=== PATIENT | female | born 1960 | race Caucasian/White ===

== ENCOUNTER 2018-02-23 07:47 | Day surgery (SDC) | payer MEDICAID ==
[~2018-02-23 07:47] MED LIST: Bupivacaine 0.5% 50 ML MDV ONE; Lidocaine 1% with EPINEPHrine 1:100,000 50 ML MDV ONE
[2018-02-23] MEDS ORDERED: Dextrose 5%-Lactated Ringers 1,000 ML IV SCH (08:30)
[2018-02-23] MEDS ORDERED: ceFAZolin 2 GM in Premix Bag 1 BAG IV ONE (09:00)
[2018-02-23] MEDS ORDERED: fentaNYL 250 MCG/5 ML SDV ONE ×2 (09:42→10:48)
[2018-02-23] MEDS ORDERED: Neostigmine Methylsulfate 1 MG/ML 5 ML Syringe ONE (09:43)
[2018-02-23] MEDS ORDERED: Succinylcholine 200 MG/10 ML MDV ONE (09:43)
[2018-02-23] MEDS ORDERED: Glycopyrrolate 0.2 MG/ML 5 ML MDV ONE (09:43)
[2018-02-23] MEDS ORDERED: Ondansetron 4 MG/2 ML SDV ONE (09:43)
[2018-02-23] MEDS ORDERED: Dexamethasone 4 MG/ML SDV ONE (09:43)
[2018-02-23] MEDS ORDERED: Propofol 200 MG/20 ML SDV ONE (09:43)
[2018-02-23] MEDS ORDERED: Rocuronium 50 MG/5 ML Vial ONE (09:43)
[2018-02-23] MEDS ORDERED: Lactated Ringers 1,000 ML ONE (11:19)
[2018-02-23] MEDS ORDERED: hydrOXYzine HCl 100 MG/2 ML SDV IM ONE (12:27)
[2018-02-23] MEDS ORDERED: fentaNYL 100 MCG/2 ML SDV IVPUSH ONE (12:28)
[2018-02-23] MEDS ORDERED: Famotidine 20 MG Tab PO PRN (12:50)
[2018-02-23] MEDS ORDERED: Ondansetron 4 MG Tab.DIS PO PRN (12:51)
[2018-02-23] MEDS: D5 1/2 NS w/ 20 mEq/L KCl 1,000 ML IV SCH ×2 (13:26→23:40)
[2018-02-23] MEDS: Acetaminophen/HYDROcodone 325-5 MG Tab PO PRN ×3 (14:25→23:41)
[2018-02-23] MEDS: fentaNYL 100 MCG/2 ML SDV IVPUSH PRN ×2 (15:14→17:42)
[2018-02-23] MEDS ORDERED: Acetaminophen 325 MG Tab PO SCH (21:00)
[2018-02-24] MEDS: Acetaminophen/HYDROcodone 325-5 MG Tab PO PRN (06:11)
[2018-02-24] MEDS ORDERED: Levothyroxine 75 MCG Tab PO SCH (07:30)
--- NOTE | 2018-02-24 08:51 | PCM.DCSUM1 ---
Discharge Summary - Hospital Course Free Text/Narrative:: This 57 year old white female has been aware of a hernia in her epigastrium for some time. Recently it began to bother her so she presented requesting repair. A CT of her abdomen saw two hernias, the one in her epigastrium and a second on inferior to her umbilicus. She received Ancef preoperatively and underwent laparoscopy to define and repair them. Prior surgery consists of two sections, a hysterectomy and incisional hernia repair with mesh. She has a lower midline incision which courses above her umbilicus. At surgery there were a lot of adhesions which we lysed. An epigastric hernia which was quite small was seen. Her lower abdomen appears intact with the mesh in good position. A small incision in her epigastrium was made and the hernia was repaired with a 6.4 cm Ventralex mesh patch with straps. Also, the CT scan showed a fatty liver so we performed a Paulie-cut liver biopsy. She was kept over night and now is eating well, feels well on oral pain medication, so is discharged at this time in good condition. I will see her in the clinic in about two weeks. - Discharge Data Discharge Date: 02/24/18 Discharge Disposition: Home, Self-Care 01 Condition: Good - Discharge Diagnosis/Problem(s) (1) Epigastric hernia SNOMED Code(s): 487954952 ICD Code: K43.9 - VENTRAL HERNIA WITHOUT OBSTRUCTION OR GANGRENE Status: Acute Current Visit: Yes - Patient Summary/Data Operative Procedure(s) Performed: Laparoscopic exploration with lysis of adhesions, open epigastric hernia repair with a Ventralex mesh patch with straps. Consults: Consultations 02/23/18 12:51 Respiratory Care Assess and Treatment [CONS] Routine Comment: Physician Instructions: Hospital Course: See above narrative. - Patient Instructions Diet: Usual Diet as Tolerated Activity: No Lifting Over 10 Pounds, No Strenuous Activities (For six weeks. ) Driving, Other: Do not drive if taking narcotic pain medication. Showering/Bathing: Shower in AM - Discharge Plan Prescriptions/Med Rec: Acetaminophen/HYDROcodone [Stinnett 325-5 MG] 1 - 2 tab PO Q4H PRN #30 tablet PRN Reason: Pain Home Medications: Home Meds Cetirizine [ZyrTEC] 10 mg PO DAILY 07/11/15 [History] Levothyroxine Sodium 150 mcg PO DAILY 03/28/15 [History] Multivitamin [Multi-Vitamin Daily] 1 tab PO DAILY 03/28/15 [History] Famotidine 20 mg PO BID PRN 02/21/18 [History] MV,Ca,Min/FA/Herbal No.157 [Estroven Max Strength Caplet] 200 mg PO DAILY [History] Acetaminophen/HYDROcodone [Stinnett 325-5 MG] 1 - 2 tab PO Q4H PRN #30 tablet 02/24 [Rx] Referrals: Surjit Duron MD [Physician] - (See me in [facility] in about two weeks. ) - Discharge Summary/Plan Comment DC Time >30 min.: Yes - General Info Date of Service: 02/24/18 Admission Dx/Problem (Free Text: Incisional hernia Functional Status: Reports: Pain Controlled, Tolerating Diet, Ambulating, Urinating, Incentive Spirometry - Review of Systems General: Reports: No Symptoms HEENT: Reports: No Symptoms Pulmonary: Reports: No Symptoms Cardiovascular: Reports: No Symptoms Gastrointestinal: Reports: No Symptoms Genitourinary: Reports: No Symptoms Musculoskeletal: Reports: No Symptoms Skin: Reports: No Symptoms Neurological: Reports: No Symptoms Psychiatric: Reports: No Symptoms - Patient Data Vitals - Most Recent: Last Vital Signs Temp 97.5 F 02/24/18 02:23 Pulse 65 02/24/18 02:23 Resp 18 02/24/18 02:23 BP 108/58 L 02/24/18 02:23 Pulse Ox 96 02/24/18 07:26 Weight - Most Recent: 248 lb I&O - Last 24 hours: Intake & Output 02/23/18 02/24/18 02/24/18 22:59 06:59 14:59 Intake Total 466 1466 Output Total 350 1550 Balance 116 -84 Lab Results - Last 24 hrs: Laboratory Results - last 24 hr 02/24/18 02/24/18 Range/Units 05:50 05:50 WBC 12.3 H (4.5-11.0) K/uL RBC 4.42 (3.30-5.50) M/uL Hgb 13.2 (12.0-15.0) g/dL Hct 40.1 (36.0-48.0) % MCV 91 (80-98) fL MCH 30 (27-31) pg MCHC 33 (32-36) % Plt Count 343 (150-400) K/uL Sodium 137 L (140-148) mmol/L Potassium 4.0 (3.6-5.2) mmol/L Chloride 104 (100-108) mmol/L Carbon Dioxide 25 (21-32) mmol/L Anion Gap 12.0 (5.0-14.0) mmol/L BUN 9 (7-18) mg/dL Creatinine 0.9 (0.6-1.0) mg/dL Est Cr Clr Drug Dosing 52.67 mL/min Estimated GFR (MDRD) > 60 (>60) Glucose 114 H (74-106) mg/dL Calcium 8.3 L (8.5-10.1) mg/dL Med Orders - Current: Current Medications Acetaminophen (Tylenol) 650 mg PO BEDTIME [facility] Last Admin: 02/23/18 21:14 Dose: 650 mg Hydrocodone Bitart/Acetaminophen (Stinnett 325-5 Mg) 1 - 2 tab PO Q4H PRN PRN Reason: Pain Last Admin: 02/24/18 06:11 Dose: 2 tab Cetirizine HCl (Zyrtec) 10 mg PO DAILY [facility] Last Admin: 02/24/18 08:08 Dose: 10 mg Famotidine (Pepcid) 20 mg PO BID PRN PRN Reason: Heartburn Fentanyl (Sublimaze) 20 mcg IVPUSH Q1H PRN PRN Reason: Pain (severe 7-10) Last Admin: 02/23/18 17:42 Dose: 20 mcg Dextrose/Lactated Ringer's (Dextrose 5%-Lactated Ringers) 1,000 mls @ 100 mls/ hr IV ASDIRECTED [facility] Last Admin: 02/23/18 08:25 Dose: 100 mls/hr Potassium Chloride/Dextrose/Sod Cl (D5 1/2 Ns W/ 20 Meq/L Kcl) 1,000 mls @ 100 mls/hr IV ASDIRECTED [facility] Last Admin: 02/23/18 23:40 Dose: 100 mls/hr Levothyroxine Sodium (Levothyroxine) 150 mcg PO DAILY@0730 [facility] Last Admin: 02/24/18 08:07 Dose: 150 mcg Multivitamins/Minerals (Thera M Plus) 1 tab PO DAILY [facility] Last Admin: 02/24/18 08:08 Dose: 1 tab (Mv,Ca,Min/Fa/Herbal No.157 [Estroven Max Strength Caplet] *Pom* 200 mg PO DAILY [facility] Last Admin: 02/24/18 08:09 Dose: Not Given Ondansetron HCl (Zofran Odt) 4 mg PO Q4H PRN PRN Reason: Nausea/Vomiting Discontinued Medications Bupivacaine HCl (Marcaine 0.5%) Confirm Administered Dose 50 ml .ROUTE .STK-MED ONE Stop: 02/23/18 06:45 Last Admin: 02/23/18 11:52 Dose: 20 ml Dexamethasone (Dexamethasone) Confirm Administered Dose 4 mg .ROUTE .STK-MED ONE Stop: 02/23/18 09:44 Fentanyl (Sublimaze) Confirm Administered Dose 250 mcg .ROUTE .STK-MED ONE Stop: 02/23/18 09:43 Fentanyl (Sublimaze) Confirm Administered Dose 250 mcg .ROUTE .STK-MED ONE Stop: 02/23/18 10:49 Fentanyl (Sublimaze) 100 mcg IVPUSH ONETIME ONE Stop: 02/23/18 12:29 Last Admin: 02/23/18 12:37 Dose: 100 mcg Glycopyrrolate (Robinul) Confirm Administered Dose 1 mg .ROUTE .STK-MED ONE Stop: 02/23/18 09:44 Hydroxyzine HCl (Vistaril) 100 mg IM ONETIME ONE Stop: 02/23/18 12:28 Last Admin: 02/23/18 12:39 Dose: 100 mg Cefazolin Sodium/Dextrose 2 gm (/ Premix) 50 mls @ 100 mls/hr IV ONETIME ONE Stop: 02/23/18 09:29 Last Admin: 02/23/18 10:00 Dose: 100 mls/hr Lactated Ringer's (Ringers, Lactated) Confirm Administered Dose 1,000 mls @ as directed .ROUTE .STK-MED ONE Stop: 02/23/18 11:20 Lidocaine/Epinephrine (Xylocaine 1% With Epinephrine 1:100,000) Confirm Administered Dose 50 ml .ROUTE .STK-MED ONE Stop: 02/23/18 06:45 Last Admin: 02/23/18 11:52 Dose: 20 ml Neostigmine Methylsulfate (Neostigmine) Confirm Administered Dose 5 mg .ROUTE .STK-MED ONE Stop: 02/23/18 09:44 Ondansetron HCl (Zofran) Confirm Administered Dose 4 mg .ROUTE .STK-MED ONE Stop: 02/23/18 09:44 Propofol (Diprivan 20 Ml) Confirm Administered Dose 200 mg .ROUTE .STK-MED ONE Stop: 02/23/18 09:44 Rocuronium [place] (Zemuron) Confirm Administered Dose 50 mg .ROUTE .STK-MED ONE Stop: 02/23/18 09:44 Succinylcholine Chloride (Quelicin) Confirm Administered Dose 200 mg .ROUTE .STArgus -MED ONE Stop: 02/23/18 09:44 - Exam General: Reports: Alert, Oriented, Cooperative Lungs: Reports: Clear to Auscultation, Normal Respiratory Effort Cardiovascular: Reports: Regular Rate, Regular Rhythm GI/Abdominal Exam: Normal Bowel Sounds Back Exam: Reports: Normal Inspection, Full Range of Motion Extremities: Normal Inspection Skin: Reports: Warm, Dry, Intact Wound/Incisions: Reports: Healing Well Neurological: Reports: No New Focal Deficit Psy/Mental Status: Reports: Alert, Normal Affect, Normal Mood
[2018-02-24 08:56] VITALS: BP 126/78
[2018-02-24] MEDS ORDERED: Multivitamins with Iron/Calcium/Folic Acid/Minerals Tab PO SCH (09:00)
[2018-02-24] MEDS ORDERED: [UNRECOGNIZED DRUG - REMARK] PO SCH (09:00)
[2018-02-24] MEDS ORDERED: Cetirizine 10 MG Tab PO SCH (09:00)
--- NOTE | 2018-02-26 08:45 | OR ---
DATE OF PROCEDURE: 02/23/2018 PREOPERATIVE DIAGNOSES: 1. Epigastric hernia. 2. Incisional hernia. 3. Fatty liver. POSTOPERATIVE DIAGNOSES: 1. Massive intraabdominal adhesions. 2. Epigastric hernia. 3. No evidence of an incisional hernia. 4. Fatty liver. PROCEDURE: Exploratory laparoscopy, lysis of adhesions, conversion to open repair of epigastric hernia with a 6.4-cm Ventralex mesh patch with straps, and Paulie-Cut liver biopsy. SURGEON: Surjit Duron MD ANESTHESIA: General endotracheal. INDICATION: This 57-year-old white female, in 2006 underwent a hysterectomy and repair of incisional hernia with mesh. She has had, prior to that, 2 sections. She says she has been aware of a hernia in her epigastrium for some time. It is starting to bother her now. It was difficult to palpate, so we sent her for a CAT scan. The CAT scan confirmed a small epigastric hernia. Also, it said there was a hernia inferior to the umbilicus. These were both fat containing with no bowel in them. She is here for laparoscopic hernia repair with possibility to convert to open. She also has a fatty liver seen on CT scan so a liver biopsy is planned. I counseled her for the procedure including risks and alternatives , and she gave her informed consent to proceed. DESCRIPTION OF PROCEDURE: After adequate general endotracheal anesthesia was obtained, a Aguero catheter was placed. The leg compression stockings were in place and used during the entire procedure. Her abdomen was prepped and draped in the usual sterile fashion. Time- out was held. A left lateral abdominal incision was made. Through this incision, a 12-mm port was introduced in the abdomen using the Optiview technique. The camera was introduced into the abdomen. The abdomen was insufflated to a pressure of 20 mmHg with carbon dioxide. No evidence of intraabdominal injury was seen. We did encounter massive inferior adhesions to the anterior abdominal wall. These appeared to all be omentum with the transverse colon pulled up also with the omentum. We placed a 5-mm port in the right upper quadrant. We began taking down bluntly and sharply the omental adhesions to the anterior abdominal wall. When we got the area cleared off enough, we did a Paulie-Cut liver biopsy as the CAT scan had shown a fatty liver. This involved making a small incision in the right upper quadrant and passing the Paulie-Cut biopsy in the liver to obtain a sample. We added a 5-mm port in the right upper quadrant, and we converted to a 5-mm scope. We continued to take down the adhesions. We encountered an epigastric hernia which was fairly small. There were multiple adhesions to the mesh. We took all these down, although we left tissue on the mesh. We went around the mesh and saw no evidence of another hernia in the lower abdomen. The abdomen was irrigated and dried. We removed the 12-mm port site on the left side and closed this fascial defect with an interrupted stitch of 0 Vicryl suture. A small incision was made over the epigastric hernia defect. The defect was large enough to allow an index finger to be placed in it. It was tight. The sac was excised and sent to pathology. We obtained a 6.4-cm Ventralex mesh patch with straps. We placed the mesh underneath the fascia and pulled on the straps to bring the mesh up to lie against the posterior rectus fascia. The straps were cut to appropriate length and anchored to the anterior fascia with interrupted stitches of 0 Vicryl. The hernia defect was closed over the mesh with an interrupted stitch of 0 Vicryl; 3-0 Vicryl using a subcuticular stitch was placed to approximate the subcutaneous tissue. We irrigated the incisions and removed the 5-mm ports. Lidocaine 1% with epinephrine in a 50:50 mix with 0.5% Marcaine was infiltrated about all incisions. Vicryl 4-0 using a subcuticular stitch was placed to approximate the skin of the incisions. Dermabond was applied. The anesthesia was reversed. She was extubated and brought to recovery room in good condition. The Aguero catheter was removed. She tolerated the procedure well. Surjit Duron MD /[id number] NOE
== END 2018-02-24 09:25 | disposition home or self-care (01) ==
LOC: JP.SDS 07:47 → JP.MS 12:51 → JP.SDS 02-24 09:25
PROVIDERS: ATTEND Surgery
DX: K43.9 Ventral hernia without obstruction or gangrene (principal); K66.0 Peritoneal adhesions (postprocedural) (postinfection); K76.0 Fatty (change of) liver, not elsewhere classified; E66.01 Morbid (severe) obesity due to excess calories; Z68.42 Body mass index [BMI] 45.0-49.9, adult; K21.9 Gastro-esophageal reflux disease without esophagitis; E03.9 Hypothyroidism, unspecified; Z79.899 Other long term (current) drug therapy
CPT/HCPCS: 36415; 47379; 49652; 80048; 85027; 88302; 88307; 88313; 94762; A9270; C1781; J0330; J0690; J1100; J2405; J2704; J2710; J3010; J3410; J3480; J7042; J7120